=== PATIENT | male | born 1975 | race Two or more races ===

== ENCOUNTER 2024-07-22 08:12 | Emergency (ER) | payer OTHER ==
[2024-07-22 08:57] LABS: Amphetamine Not Detected (NotDetected); Barbiturates Screen Not Detected (NotDetected); Benzodiazepine Screen Not Detected (NotDetected); Cocaine Metabolite Screen Not Detected (NotDetected); Methadone Not Detected (NotDetected); Methamphetamine Not Detected (NotDetected); Opiate Screen Not Detected (NotDetected); Oxycodone Screen Not Detected (NotDetected); Phencyclidine (PCP) Not Detected (NotDetected); THC/Cannabinoid Screen Not Detected (NotDetected); Tricyclic Screen Not Detected (NotDetected)
== END 2024-07-22 08:57 | disposition home or self-care (01) ==
LOC: ERS 08:12
DX: Z77.29 Contact with and (suspected) exposure to other hazardous substances (principal); R06.00 Dyspnea, unspecified; R51.9 Headache, unspecified; I10 Essential (primary) hypertension
CPT/HCPCS: 80306; 99282